=== PATIENT | female | born 1990 | race Caucasian/White ===

== ENCOUNTER 2021-07-04 12:42 | Emergency (ER) | payer OTHER ==
[2021-07-04] MEDS ORDERED: VALTREX1000 MG PO (15:04)
[2021-07-04] MEDS ORDERED: IBUPROFEN800 MG PO (15:16)
[2021-07-07 20:10] LABS: CHLAMYDIA TRACHOMATIS, NAA Negative (Negative); NEISSERIA GONORRHOEAE, NAA Negative (Negative)
== END 2021-07-04 16:13 | disposition home or self-care (01) ==
LOC: ER1 12:42
PROVIDERS: Physician Assistant
DX: J02.9 Acute pharyngitis, unspecified (principal); N39.0 Urinary tract infection, site not specified; B00.1 Herpesviral vesicular dermatitis; F17.210 Nicotine dependence, cigarettes, uncomplicated
CPT/HCPCS: 81001; 87081; 87086; 87880; 96372; 99283; J1100

== ENCOUNTER 2021-08-04 20:06 | Emergency (ER) | payer OTHER ==
[~2021-08-04 20:06] MED LIST: IBUPROFEN800 MG PO; VALTREX1000 MG PO
[2021-08-04] MEDS ORDERED: magic mouthwash PO (20:52)
[2021-08-04] MEDS ORDERED: VALTREX1000 MG PO (20:52)
== END 2021-08-04 21:13 | disposition home or self-care (01) ==
LOC: ER1 20:06
DX: B00.9 Herpesviral infection, unspecified (principal); R51.9 Headache, unspecified; F17.200 Nicotine dependence, unspecified, uncomplicated
CPT/HCPCS: 99283

== ENCOUNTER 2021-09-14 13:28 | Emergency (ER) | payer OTHER ==
[~2021-09-14 13:28] MED LIST changes: +magic mouthwash PO
[2021-09-14 14:33] LABS: HEMOGLOBIN 13.2 gm/dl (12.3-15.3); RED BLOOD COUNT 5.02 M/UL (4.00-5.10); WHITE BLOOD COUNT 9.6 K/UL (4.5-11.0)
[2021-09-14 15:27] LABS: BUN/CREATININE RATIO 17 (0-10)
== END 2021-09-15 15:20 | disposition home or self-care (01) ==
LOC: ER1 13:28
PROVIDERS: Family Medicine
DX: T40.1X1A Poisoning by heroin, accidental (unintentional), initial encounter (principal); F32.A Depression, unspecified; F19.10 Other psychoactive substance abuse, uncomplicated; X58.XXXA Exposure to other specified factors, initial encounter
CPT/HCPCS: 80053; 80307; 85025; 96372; 96374; 96375; 99285; G0480; J1200; J1630; J2060

== ENCOUNTER 2021-11-10 13:26 | Emergency (ER) | payer OTHER ==
[2021-11-10 16:24] LABS: RED BLOOD COUNT 5.34 M/UL (4.00-5.10); WHITE BLOOD COUNT 9.8 K/UL (4.5-11.0)
[2021-11-10 16:54] LABS: BUN/CREATININE RATIO 18 (0-10)
== END 2021-11-10 16:55 | disposition home or self-care (01) ==
LOC: ER1 13:26
PROVIDERS: Emergency Medicine
DX: R42 Dizziness and giddiness (principal); F17.200 Nicotine dependence, unspecified, uncomplicated
CPT/HCPCS: 36415; 80053; 81001; 82550; 82553; 82962; 84703; 85025; 93005; 99284; J7030

== ENCOUNTER 2022-02-07 11:00 | Emergency (ER) | payer OTHER | END 2022-02-07 12:15 | disposition home or self-care (01) | LOC: ER1 11:00 | DX: M54.2 Cervicalgia (principal); F15.10 Other stimulant abuse, uncomplicated; E11.9 Type 2 diabetes mellitus without complications; I10 Essential (primary) hypertension; F17.210 Nicotine dependence, cigarettes, uncomplicated | CPT/HCPCS: 70360; 99283 ==

== ENCOUNTER 2022-05-08 17:09 | Emergency (ER) | payer OTHER ==
[2022-05-08 17:40] LABS: HEMOGLOBIN 12.1 gm/dl (12.3-15.3); RED BLOOD COUNT 4.86 M/UL (4.00-5.10); WHITE BLOOD COUNT 11.3 K/UL (4.5-11.0)
[2022-05-08 18:00] LABS: BUN/CREATININE RATIO 15 (0-10)
== END 2022-05-09 02:20 | disposition home or self-care (01) ==
LOC: ER1 17:09
PROVIDERS: Physician Assistant
DX: R51.9 Headache, unspecified (principal); Z90.49 Acquired absence of other specified parts of digestive tract; F17.210 Nicotine dependence, cigarettes, uncomplicated; F17.290 Nicotine dependence, other tobacco product, uncomplicated; Z20.822 Contact with and (suspected) exposure to COVID-19
CPT/HCPCS: 0240U; 70450; 80053; 80307; 84703; 85025; 87077; 87086; 87186; 96361; 96372; 96374; 96375; 99284; J1200; J1885; J2405